=== PATIENT | female | born 1950 | race Caucasian/White ===

== ENCOUNTER 2022-02-08 08:10 | Observation (INO) ==
[~2022-02-08 08:10] MED LIST: Buffered Lidocaine 1% SYRIN 1 ml INTRADERM ONE; Dexamethasone IV 4 MG/ML VIAL 1 ml VIAL IV SLOW PU ONE; Famotidine IV 10 MG/ML 2 ml VIAL (20 mg) IV ONE; Lactated Ringers 1000 ml BAG 1,000 ML IV SCH
[2022-02-08] MEDS ORDERED: Dexamethasone IV 4 MG/ML VIAL 1 ml VIAL ONE (08:51)
[2022-02-08] MEDS ORDERED: ceFAZolin 2 GM PREMIX 2 GM/50 ML BAG ONE (09:17)
[2022-02-08] MEDS ORDERED: fentaNYL 100 mcg/2 ml 50 MCG/ML VIAL ONE (10:25)
[2022-02-08] MEDS ORDERED: Midazolam 2 mg/2 ml VIAL 1 mg/ml 2 ml VIAL (2 mg) ONE (10:25)
[2022-02-08] MEDS ORDERED: ROPIVACAINE 5 MG/ML 30 ML BTL (0.5%) ONE ×2 (10:26→11:04)
[2022-02-08] MEDS ORDERED: Prochlorperazine 5 mg/ml 2 ml VIAL (10 mg) IV PRN (11:59)
[2022-02-08] MEDS ORDERED: Naloxone 0.4 mg VIAL 0.4 mg/ml 1 ml VIAL IV PRN (11:59)
[2022-02-08] MEDS ORDERED: Morphine 4 MG/ML VIAL (1 ml) IV PRN (11:59)
[2022-02-08] MEDS ORDERED: fentaNYL 100 mcg/2 ml 50 MCG/ML VIAL IV PRN (11:59)
[2022-02-08] MEDS ORDERED: Ondansetron ODT 4 mg TAB 4 MG TAB PO PRN (14:13)
[2022-02-08] MEDS ORDERED: Morphine 2 MG/ML SYRINGE IV PRN (14:13)
[2022-02-08] MEDS ORDERED: Lactulose 30 ml UDC PO PRN (14:13)
[2022-02-08] MEDS ORDERED: Ondansetron 4 mg VIAL 2 MG/ML 2 ml VIAL IV PRN (14:13)
[2022-02-08] MEDS ORDERED: Magnesium Hydroxide LIQ 30 ML UDC PO PRN (14:13)
[2022-02-08] MEDS ORDERED: Lactated Ringers 1000 ml BAG 1,000 ML IV SCH ×2 (15:00→19:00)
[2022-02-08] MEDS: ceFAZolin 1 GM ADVAN 1 GM in NS 0.9% 50 ML 50 ML IVPB SCH (21:28)
[2022-02-08] MEDS: Magnesium Hydroxide LIQ 30 ML UDC PO SCH (21:28)
[2022-02-09] MEDS: ceFAZolin 1 GM ADVAN 1 GM in NS 0.9% 50 ML 50 ML IVPB SCH ×2 (04:00→10:58)
[2022-02-09 06:06] LABS: Hematocrit 33 % (35-47); Hemoglobin 11.1 g/dL (12.0-16.0); Mean Platelet Volume 8.5 fL (7.4-10.4); Platelet Count 257 10^3/uL (150-450)
[2022-02-09 06:38] LABS: Calcium 8.5 mg/dL (8.6-10.3); Potassium 3.9 mmol/L (3.5-5.0); eGFR CKD-EPI 74.4 (>60)
[2022-02-09] MEDS: Magnesium Hydroxide LIQ 30 ML UDC PO SCH (08:18)
[2022-02-09] MEDS ORDERED: Vitamin THERAPEUTIC TAB PO SCH (09:00)
[2022-02-09 11:22] VITALS: BP 108/62
== END 2022-02-09 12:30 | disposition home or self-care (01) ==
LOC: AA 08:10 → INTOOBSV 08:10 → SSU 14:13
PROVIDERS: ADMIT Orthopaedic Surgery Adult Reconstructive Orthopaedic Surgery; ATTEND Orthopaedic Surgery Adult Reconstructive Orthopaedic Surgery